=== PATIENT | male | born 1985 | race Caucasian/White ===

== ENCOUNTER 2018-09-09 21:49 | Emergency (ER) | payer BC ==
[2018-09-09 22:48] LABS: Absolute Lymphocytes (CBC) 2.6 K/uL (0.7-4.9); Absolute Monocytes 0.8 K/uL (0.1-1.3); Absolute Neutrophil 5.2 K/uL (1.8-8.0); Basophils % 0.4 % (0-1.3); Hematocrit 46.4 % (39.6-49.0); Lymphocytes % 28.2 % (15.3-44.8); MCH 31.2 pg (27.0-35.0); MCV 88.4 fL (80-100); MPV 8.7 fL (7.6-11.3); Monocytes % 8.7 % (3.3-12.3); RBC Red Blood Cell Count 5.25 M/uL (4.33-5.43)
[2018-09-09 23:06] LABS: ALT/SGPT 49 U/L (12-78); AST/SGOT 17 U/L (15-37); Albumin 4.1 g/dL (3.4-5.0); Alkaline Phosphatase 62 U/L (45-117); BUN Blood Urea Nitrogen 19 mg/dL (7-18); Bicarbonate 28 mmol/L (21-32); Bilirubin Direct 0.1 mg/dL (0-0.2); Bilirubin Total 0.4 mg/dL (0.2-1.0); Glucose Level 101 mg/dL (74-106); Magnesium 2.2 mg/dL (1.8-2.4); NT PRO-BNP 12 pg/mL (<125); Potassium 3.6 mmol/L (3.5-5.1); Protein, Total 7.2 g/dL (6.4-8.2); Sodium Level 141 mmol/L (136-145); Troponin (Emerg Dept Use Only) < 0.02 ng/mL (0.0-0.045)
--- NOTE | 2018-09-10 00:38 | EDPHYS ---
Physician Documentation [facility] Name: Waldo Hobson Age: 33 yrs Sex: Male : 1985 Arrival Date: 09/09/2018 Time: 21:50 Bed 27 Private MD: ED Physician Artemio Lindsay HPI: 09/09 23:29 This 33 yrs old Male presents to ER via Ambulatory with complaints of Seizure.jr8 23:29 Patient stated that he was sitting at the dinner table with his eating pizza. jr8 Stated that he has sudden onset heart burn sensation and felt dizzy. stated that shortly after that he grabbed chest and then tensed up and started to drool. Fell to one side while remaining seated. Stated that he was very tense and somewhat shaking for about 15 seconds. Afterward came too a few seconds after incident but did not recall that that had happened . Severity of symptoms: At their worst the symptoms were moderate in the emergency department the symptoms have resolved. The patient has not experienced similar symptoms in the past. The patient has not recently seen a physician. Historical: - Allergies: 21:59 No Known Allergies; ed1 - Home Meds: 21:59 None [Active]; ed1 - PMHx: 21:59 None; ed1 - PSHx: 21:59 cleft lip; cleft pallet; ed1 - Immunization history:: Adult Immunizations up to date, Flu vaccine is not up to date. - Social history:: Smoking status: Patient/guardian denies using tobacco. - Ebola Screening: : Patient negative for fever greater than or equal to 101.5 degrees Fahrenheit, and additional compatible Ebola Virus Disease symptoms Patient denies exposure to infectious person Patient denies travel to an Ebola-affected area in the 21 days before illness onset No symptoms or risks identified at this time. ROS: 23:29 Eyes: Negative for injury, pain, redness, and discharge, ENT: Negative for injury, jr8 pain, and discharge, Neck: Negative for injury, pain, and swelling, Cardiovascular: Negative for chest pain, palpitations, and edema, Respiratory: Negative for shortness of breath, cough, wheezing, and pleuritic chest pain, Abdomen/GI: Negative for abdominal pain, nausea, vomiting, diarrhea, and constipation, Back: Negative for injury and pain, MS/Extremity: Negative for injury and deformity, Skin: Negative for injury, rash, and discoloration. 23:29 Neuro: Positive for dizziness, seizure activity, syncope. Exam: 23:29 Eyes: Pupils equal round and reactive to light, extra-ocular motions intact. Lids and jr8 lashes normal. Conjunctiva and sclera are non-icteric and not injected. Cornea within normal limits. Periorbital areas with no swelling, redness, or edema. ENT: Nares patent. No nasal discharge, no septal abnormalities noted. Tympanic membranes are normal and external auditory canals are clear. Oropharynx with no redness, swelling, or masses, exudates, or evidence of obstruction, uvula midline. Mucous membranes moist. Neck: Trachea midline, no thyromegaly or masses palpated, and no cervical lymphadenopathy. Supple, full range of motion without nuchal rigidity, or vertebral point tenderness. No Meningismus. Cardiovascular: Regular rate and rhythm with a normal S1 and S2. No gallops, murmurs, or rubs. Normal PMI, no JVD. No pulse deficits. Respiratory: Lungs have equal breath sounds bilaterally, clear to auscultation and percussion. No rales, rhonchi or wheezes noted. No increased work of breathing, no retractions or nasal flaring. Abdomen/GI: Soft, non-tender, with normal bowel sounds. No distension or tympany. No guarding or rebound. No evidence of tenderness throughout. Back: No spinal tenderness. No costovertebral tenderness. Full range of motion. Skin: Warm, dry with normal turgor. Normal color with no rashes, no lesions, and no evidence of cellulitis. MS/ Extremity: Pulses equal, no cyanosis. Neurovascular intact. Full, normal range of motion. Neuro: Awake and alert, GCS 15, oriented to person, place, time, and situation. Cranial nerves II-XII grossly intact. Motor strength 5/5 in all extremities. Sensory grossly intact. Cerebellar exam normal. Normal gait. Vital Signs: 21:59 BP 133 / 94; Pulse 64; Resp 16; Temp 98.2(O); Pulse Ox 96% on R/A; Weight 95.25 kg (R); ed1 Height 6 ft. 2 in. (187.96 cm); Pain 0/10; 22:30 BP 119 / 88; Pulse 64; Resp 16; Pulse Ox 96% on R/A; rv 23:23 BP 126 / 90; Pulse 65; Resp 16 S; Pulse Ox 99% on R/A; rv 09/10 00:36 BP 127 / 82; Pulse 60; Resp 16 S; Pulse Ox 100% on R/A; rv 09/09 21:59 Body Mass Index 26.96 (95.25 kg, 187.96 cm) ed1 [place] Coma Score: 09/09 21:59 Eye Response: spontaneous(4). Verbal Response: oriented(5). Motor Response: obeys ed1 commands(6). Total: 15. MDM: 21:54 Patient medically screened. jr8 09/10 00:33 Data reviewed: vital signs, nurses notes, lab test result(s), EKG, radiologic studies, jr8 plain films. Data interpreted: Pulse oximetry: on room air is 99 %. Interpretation: normal. Counseling: I had a detailed discussion with the patient and/or guardian regarding: the historical points, exam findings, and any diagnostic results supporting the discharge/admit diagnosis, lab results, radiology results, the need for outpatient follow up, a family practitioner, a neurologist, to return to the emergency department if symptoms worsen or persist or if there are any questions or concerns that arise at home. ED course: Patient has remained asymptomatic while in ED. Patient without acute findings on xray, ecg, or labs. Patient wants to forgo CT of the head for now and just wants to f/u on outpatient basis with neurologist. Explained to him that I cannot r/o intracranial abnormality such as mass, bleed, or infarction without imaging. Patient understands but still refuses at this time. Will d/c home with close return precautions. stated that she will be home with him all today and tomorrow. That he will be off of work as well . 09/09 22:25 Order name: Basic Metabolic Panel; Complete Time: 23:23 jr8 09/09 22:25 Order name: CBC with Diff; Complete Time: 23:23 jr8 09/09 22:25 Order name: LFT's; Complete Time: 23:23 jr8 09/09 22:25 Order name: Magnesium; Complete Time: 23:23 jr8 09/09 22:25 Order name: NT PRO-BNP; Complete Time: 23:23 jr8 09/09 22:25 Order name: PT-INR; Complete Time: 23:23 [facility] 09/09 22:25 Order name: Troponin (emerg Dept Use Only); Complete Time: 23:23 09/09 22:25 Order name: XRAY Chest (1 view) [facility] 09/09 22:25 Order name: EKG; Complete Time: 22:26 09/09 22:25 Order name: Cardiac monitoring; Complete Time: 22:54 [facility] 09/09 22:25 Order name: EKG - Nurse/Tech; Complete Time: 22:54 [facility] 09/09 22:25 Order name: IV Saline Lock; Complete Time: 22:36 09/09 22:25 Order name: Labs collected and sent; Complete Time: :36 [facility] 09/09 22:25 Order name: O2 Per Protocol; Complete Time: 22:36 [facility] 09/09 22:25 Order name: O2 Sat Monitoring; Complete Time: :36 Administered Medications: No medications were administered Disposition: 01:36 Co-signature as Attending Physician, Artemio Lindsay MD I agree with the assessment and 4 plan of care. Disposition: 09/10/18 00:37 Discharged to Home. Impression: Seizure. - Condition is Stable. - Discharge Instructions: Nonepileptic Seizures, Syncope. - Medication Reconciliation Form, Thank You Letter, Antibiotic Education, Prescription Opioid Use form. - Follow up: Jose Fuentes MD; When: 2 - 3 days; Reason: Recheck today's complaints, Continuance of care, Re-evaluation by your physician. Follow up: Cornelius Urbina MD; When: 2 - 3 days; Reason: Recheck today's complaints, Continuance of care, Re-evaluation by your physician. - Problem is new. - Symptoms have improved. Signatures: Dispatcher [employer] EDMS Erendira Allen, PATHOLOGY MANAGER PATHOLOGY MANAGER ed1 Shay Sandoval PA PA jr8 Artemio Lindsay MD MD tw4 Cruz Weaver, SANG RN rv Corrections: (The following items were deleted from the chart) 00:36 09/09 23:51 Head Brain Wo Cont+CT.RAD.BRZ ordered. EDSD EDSD 09/10 00:43 00:37 09/10/2018 00:37 Discharged to Home. Impression: Seizure. Condition is Stable. rv Forms are Medication Reconciliation Form, Thank You Letter, Antibiotic Education, Prescription Opioid Use. Follow up: Cornelius Urbina; When: 2 - 3 days; Reason: Recheck today's complaints, Continuance of care, Re-evaluation by your physician. Problem is new. Symptoms have improved. jr8
--- NOTE | 2018-09-10 00:38 | ER ---
Nurse's Notes [facility] Name: Waldo Hobson Age: 33 yrs Sex: Male : 1985 Arrival Date: 09/09/2018 Time: 21:50 Bed 27 Private MD: Diagnosis: Seizure Presentation: 09/09 21:57 Presenting complaint: Patient states: I was eating pizza and I started getting heard ed1 burn. They say I passed out and was shaking for about 15 seconds. Transition of care: patient was not received from another setting of care. Onset of symptoms was September 09, 2018. Risk Assessment: Do you want to hurt yourself or someone else? Patient reports no desire to harm self or others. Initial Sepsis Screen: Does the patient meet any 2 criteria? No. Patient's initial sepsis screen is negative. Does the patient have a suspected source of infection? No. Patient's initial sepsis screen is negative. Care prior to arrival: None. 21:57 Method Of Arrival: Ambulatory ed1 22:03 Acuity: FELIPE 3 rv Triage Assessment: 21:59 General: Appears in no apparent distress. Behavior is calm, cooperative, No loss of ed1 bowel or bladder reported. Pain: Denies pain. EENT: No signs and/or symptoms were reported regarding the EENT system. Neuro: Level of Consciousness is awake, alert, obeys commands, Oriented to person, place, time, situation, Inside Account Executive are equal bilaterally Moves all extremities. Full function Gait is steady, Speech is normal, Facial symmetry appears normal, Pupils are PERRLA, Intact Denies weakness blurred vision dizziness, numbness headache Seizure activity reported prior to arrival. Cardiovascular: Denies chest pain, Heart tones S1 S2 present. Respiratory: Airway is patent Respiratory effort is even, unlabored, Respiratory pattern is regular, symmetrical, Breath sounds are clear bilaterally. GI: Reports epigastric pain. : No signs and/or symptoms were reported regarding the genitourinary system. Derm: Skin is intact, is healthy with good turgor, Skin is dry, Skin is normal, Skin temperature is warm. Musculoskeletal: Circulation, motion, and sensation intact. Historical: - Allergies: 21:59 No Known Allergies; ed1 - Home Meds: 21:59 None [Active]; ed1 - PMHx: 21:59 None; ed1 - PSHx: 21:59 cleft lip; cleft pallet; ed1 - Immunization history:: Adult Immunizations up to date, Flu vaccine is not up to date. - Social history:: Smoking status: Patient/guardian denies using tobacco. - Ebola Screening: : Patient negative for fever greater than or equal to 101.5 degrees Fahrenheit, and additional compatible Ebola Virus Disease symptoms Patient denies exposure to infectious person Patient denies travel to an Ebola-affected area in the 21 days before illness onset No symptoms or risks identified at this time. Screenin:13 Abuse screen: Denies threats or abuse. Denies injuries from another. Nutritional rv screening: No deficits noted. Tuberculosis screening: No symptoms or risk factors identified. Fall Risk None identified. Assessment: 22:12 General: Appears in no apparent distress. comfortable, Behavior is calm, cooperative. rv Pain: Denies pain. Neuro: Level of Consciousness is awake, alert, obeys commands, Oriented to person, place, time, situation. Cardiovascular: Capillary refill < 3 seconds. Respiratory: Airway is patent. GI: No signs and/or symptoms were reported involving the gastrointestinal system. : No signs and/or symptoms were reported regarding the genitourinary system. EENT: No signs and/or symptoms were reported regarding the EENT system. Derm: Skin is intact. Musculoskeletal: No signs and/or symptoms reported regarding the musculoskeletal system. Vital Signs: 21:59 BP 133 / 94; Pulse 64; Resp 16; Temp 98.2(O); Pulse Ox 96% on R/A; Weight 95.25 kg (R); ed1 Height 6 ft. 2 in. (187.96 cm); Pain 0/10; 22:30 BP 119 / 88; Pulse 64; Resp 16; Pulse Ox 96% on R/A; rv 23:23 BP 126 / 90; Pulse 65; Resp 16 S; Pulse Ox 99% on R/A; rv 12 00:36 BP 127 / 82; Pulse 60; Resp 16 S; Pulse Ox 100% on R/A; rv 09/09 21:59 Body Mass Index 26.96 (95.25 kg, 187.96 cm) ed1 [place] Coma Score: 09/09 21:59 Eye Response: spontaneous(4). Verbal Response: oriented(5). Motor Response: obeys ed1 commands(6). Total: 15. ED Course: 21:50 Patient arrived in ED. ds1 21:54 Shay Sandoval PA is PHCP. jr8 21:54 Artemio Lindsay MD is Attending Physician. jr8 21:59 Arm band placed on right wrist. ed1 22:03 Triage completed. rv 22:13 Patient has correct armband on for positive identification. Bed in low position. Call rv light in reach. Side rails up X 1. Adult w/ patient. Seizure precautions initiated. Pulse ox on. NIBP on. 22:36 Basic Metabolic Panel Sent. rv 22:37 CBC with Diff Sent. rv 22:37 LFT's Sent. rv 22:37 Magnesium Sent. rv 22:37 NT PRO-BNP Sent. rv 22:37 PT-INR Sent. rv 22:37 Troponin (emerg Dept Use Only) Sent. rv 22:37 Initial lab(s) drawn, by ia, sent to lab. Inserted saline lock: 20 gauge in right rv forearm, using aseptic technique. Blood collected. 22:54 XRAY Chest (1 view) In Process Unspecified. EDCA 09/10 00:36 Jose Fuentes MD is Referral Physician. jr8 00:36 Referral Physician role handed off by Jose Fuentes MD jr8 00:36 Cornelius Urbina MD is Referral Physician. jr8 00:37 No provider procedures requiring assistance completed. IV discontinued, bleeding rv controlled, No redness/swelling at site. Pressure dressing applied. Administered Medications: No medications were administered Outcome: 00:37 Discharge ordered by . jr8 00:37 Discharged to home ambulatory. rv 00:37 Condition: good 00:37 Discharge instructions given to patient, Instructed on discharge instructions, follow up and referral plans. Demonstrated understanding of instructions, follow-up care. 00:43 Patient left the ED. rv Signatures: Dispatcher [employer] EDCA OrtegaMiltoni ds1 Erendira Allen, TWX OPERATOR TWX OPERATOR ed1 Shay Sandoval PA PA jr8 Cruz Weaver, SANG RN rv
[2018-09-10 00:55] VITALS: TEMP 98.2
[2018-09-10 00:58] VITALS: BP 127/82; O2SAT 100
--- NOTE | 2018-09-10 07:11 | EKG ---
Test Date: 2018-09-09 Test Time: 22:47:47 Resource Engineer: MEASUREMENT RESULTS: Intervals: Rate: 63 MI: 156 QRSD: 90 QT: 392 QTc: 401 [place]: P: 25 MI: 156 QRS: 15 T: -3 INTERPRETIVE STATEMENTS: Normal sinus rhythm Normal ECG No previous ECG available for comparison Electronically Signed On 09-10-18 07:10:52 AGENCY SALES DIRECTOR by Eliazar Jorgensen
--- NOTE | 2018-09-10 08:16 | RAD REPORT ---
EXAM DESCRIPTION: RAD - Chest Single View - 09/09/2018 10:57 pm CLINICAL HISTORY: syncope Chest pain. COMPARISON: CHEST PA AND LAT 2 VIEW dated 04/14/2010 FINDINGS: Portable technique limits examination quality. The lungs are grossly clear. The heart is normal in size. No displaced fractures. IMPRESSION: No acute intrathoracic process suspected.
== END 2018-09-10 00:43 | disposition home or self-care (01) ==
LOC: ER 21:49
DX: R56.9 Unspecified convulsions (principal)
CPT/HCPCS: 36415; 71045; 80048; 80076; 83735; 83880; 84484; 85025; 85610; 93005; 99284